=== PATIENT | male | born 1970 | race American Indian/Alaskan Native ===

== ENCOUNTER 2016-09-06 23:09 | Emergency (ER) | payer SELFPAY ==
[2016-09-06 23:27] VITALS: BP 160/76; PULSE 94; RESP 16; TEMP 98; O2SAT 97
--- NOTE | 2016-09-07 00:20 | ED PDOC ---
HPI: Psych/Substance Abuse Time Seen by Provider: 09/06/16 23:17 Chief Complaint (Nursing): Alcohol Ingestion Chief Complaint (Provider): ETOH - Denies complaint History Per: Patient History/Exam Limitations: no limitations Onset/Duration Of Symptoms: Days Current Symptoms Are (Timing): Still Present Modifying Factor(s): Alcohol Additional Complaint(s): Clear speech and steady gait on arrival. Pt states he drank a little earlier today and just wants to go home. Past Medical History Reviewed: Historical Data, Nursing Documentation, Vital Signs Vital Signs: Last Vital Signs Temp 98.0 F 09/06/16 23:22 Pulse 94 H 09/06/16 23:22 Resp 16 09/06/16 23:22 BP 160/76 H 09/06/16 23:22 Pulse Ox 97 09/06/16 23:22 - Medical History PMH: No Chronic Diseases, Gastritis - Surgical History Surgical History: No Surg Hx - Family History Family History: States: No Known Family Hx - Living Arrangements Living Arrangements: With Family - Social History Current smoker - smoking cessation education provided: No - Allergies Allergies/Adverse Reactions: Allergies Allergy/AdvReac Type Severity Reaction Status Date / Time Unobtainable Allergy Verified 09/06/16 23:27 Review of Systems ROS Statement: Except As Marked, All Systems Reviewed And Found Negative Neurological: Positive for: Other Physical Exam - Reviewed Nursing Documentation Reviewed: Yes Vital Signs Reviewed: Yes - Physical Exam Appears: Positive for: Well, Non-toxic, No Acute Distress Head Exam: Positive for: ATRAUMATIC, NORMAL INSPECTION, NORMOCEPHALIC Skin: Positive for: Normal Color, Warm, DRY Eye Exam: Positive for: Normal appearance ENT: Positive for: Normal ENT Inspection Neck: Positive for: Normal, Painless ROM Cardiovascular/Chest: Positive for: Regular Rate, Rhythm Respiratory: Positive for: CNT, Normal Breath Sounds Gastrointestinal/Abdominal: Positive for: Normal Exam, Bowel Sounds, Soft Back: Positive for: Normal Inspection Extremity: Positive for: Normal ROM Neurologic/Psych: Positive for: Alert, Oriented - ECG O2 Sat by Pulse Oximetry: 97 Medical Decision Making Medical Decision Making: AccuCheck normal Disposition - Clinical Impression Clinical Impression: Alcohol abuse Counseled Patient/Family Regarding: Diagnosis, Need For Followup - Disposition Referrals: [facility] [Outside] Disposition: Routine/Home Disposition Time: 00:20 Condition: GOOD
== END 2016-09-07 00:59 | disposition home or self-care (01) ==
LOC: MERGE 23:09 → H.ER 23:09
DX: F10.10 Alcohol abuse, uncomplicated (principal); Z71.6 Tobacco abuse counseling

== ENCOUNTER 2016-09-21 02:20 | Emergency (ER) | payer SELFPAY ==
[2016-09-21 02:20] VITALS: BMI 24.3
[2016-09-21] MEDS ORDERED: Silver Sulfadiazine 1% CREAM (50 gm) TOP STA (02:37)
[2016-09-21] MEDS ORDERED: Silver Sulfadiazine 1% CREAM (50 gm) ONE (02:41)
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
[2016-09-21 07:04] VITALS: BP 131/72; PULSE 80; RESP 16; TEMP 98; O2SAT 99
== END 2016-09-21 07:20 | disposition home or self-care (01) ==
LOC: H.ER 02:20
DX: T30.0 Burn of unspecified body region, unspecified degree (principal); E11.9 Type 2 diabetes mellitus without complications; F20.9 Schizophrenia, unspecified; F31.9 Bipolar disorder, unspecified; Z79.84 Long term (current) use of oral hypoglycemic drugs

== ENCOUNTER 2017-01-10 20:25 | Emergency (ER) | payer SELFPAY ==
[2017-01-10 20:26] VITALS: BMI 24.3
[2017-01-10 20:42] VITALS: BP 140/83; PULSE 74; RESP 20; TEMP 98; O2SAT 99
--- NOTE | 2017-01-10 20:58 | ED PDOC ---
HPI: General Adult Time Seen by Provider: 01/10/17 20:43 Chief Complaint (Nursing): Male Genitourinary History Per: Patient Additional Complaint(s): Pt. states for the past 5 days he's had R sided flank pain radiating to his R groin associated with dark urine but no hematuria or dysuria. Also reports he's been constipated for the past 4 days which is not unusual for him as his BMs are very irregular. States there are stretches where he has a BM daily and other days he has one every 3-4 days. Of note, pt. states he has had a gastric bypass surgery. Denies fever, abdominal pain, vomiting, nausea, trauma, chest pain, melena, hematochezia, SOB. Past Medical History Reviewed: Historical Data, Nursing Documentation, Vital Signs Vital Signs: Last Vital Signs Temp 98.0 F 01/10/17 20:39 Pulse 74 01/10/17 20:39 Resp 20 01/10/17 20:39 BP 140/83 01/10/17 20:39 Pulse Ox 99 01/10/17 20:59 - Medical History PMH: Back Problems, Bipolar Disorder (information from ems), Diabetes, Gastritis , Schizophrenia (information from ems) - Family History Family History: States: No Known Family Hx - Immunization History Hx Tetanus Toxoid Vaccination: No Hx Influenza Vaccination: No Hx Pneumococcal Vaccination: No - Home Medications Home Medications: Ambulatory Orders Medication Instructions Recorded Metformin HCl [Metformin] 01/30/14 Kaopectate 02/09/14 Percocet 10/325 mg Tab 02/09/14 Vitamin D 02/09/14 Cephalexin [cephalexin] 500 mg PO BID #14 cap 09/21/16 Ibuprofen [Motrin] 600 mg PO Q6 #20 tab 09/21/16 Silver Sulfadiazine 1% [Silver 1 cm2 TP BID #1 jar 09/21/16 Sulfadiazine] Polyethylene Glycol 3350 [Miralax] 17 gm PO DAILY PRN #30 each 01/10/17 - Allergies Allergies/Adverse Reactions: Allergies Allergy/AdvReac Type Severity Reaction Status Date / Time No Known Allergies Allergy Verified 09/21/16 02:23 Review of Systems ROS Statement: Except As Marked, All Systems Reviewed And Found Negative Gastrointestinal: Positive for: Constipation Musculoskeletal: Positive for: Back Pain Physical Exam - Reviewed Nursing Documentation Reviewed: Yes Vital Signs Reviewed: Yes - Physical Exam Appears: Positive for: Well, Non-toxic, No Acute Distress Head Exam: Positive for: ATRAUMATIC, NORMAL INSPECTION, NORMOCEPHALIC Skin: Positive for: Normal Color, Warm. Negative for: Rash Eye Exam: Positive for: EOMI, Normal appearance, PERRL ENT: Positive for: Normal ENT Inspection Neck: Positive for: Normal, Painless ROM Cardiovascular/Chest: Positive for: Regular Rate, Rhythm Respiratory: Positive for: CNT, Normal Breath Sounds Gastrointestinal/Abdominal: Positive for: Normal Exam, Bowel Sounds, Soft. Negative for: Tenderness Back: Positive for: Normal Inspection. Negative for: L CVA Tenderness, R CVA Tenderness Extremity: Positive for: Normal ROM Neurologic/Psych: Positive for: Alert, Oriented - Laboratory Results Result Diagrams: 01/10/17 21:32 01/10/17 21:32 - ECG O2 Sat by Pulse Oximetry: 99 - Radiology X-Ray: Interpreted by Me (Obstructive series) X-Ray Interpretation: Other (no obstruction) - Progress ED Course And Treament: Labs ordered. Obstructive series ordered. Re-evaluation Time: 22:24 (No distress. Abd remains soft and non-tender to deep palpation, no CVA tenderenss b/l.) Condition: Re-examined, Unchanged Disposition - Clinical Impression Clinical Impression: Constipation - Patient ED Disposition Is Patient to be Admitted: No - Disposition Referrals: [facility] [Outside] Disposition: Routine/Home Disposition Time: 22:27 Condition: STABLE Prescriptions: Polyethylene Glycol 3350 [Miralax] 17 gm PO DAILY PRN #30 each PRN Reason: Constipation Instructions: Constipation (ED) Forms: [employer] (Samoan)
[2017-01-10 21:50] LABS: BASO # 0.1 K/uL (0.0-0.2); EOS # 0.2 K/uL (0.0-0.7); EOS % 2.1 % (0.0-4.0); HEMATOCRIT 42.1 % (35.0-51.0); LYMPH # 2.7 K/uL (1.0-4.3); LYMPH % 30.6 % (20.0-40.0); MEAN CELL VOLUME 92.6 fl (80.0-94.0); MEAN CORPUSCULAR HEMOGLOBIN 30.8 pg (27.0-31.0); MEAN CORPUSCULAR HGB CONC 33.3 g/dL (33.0-37.0); MEAN PLATELET VOLUME 9.6 fl (7.2-11.7); MONO # 0.8 K/uL (0.0-0.8); MONO % 9.1 % (0.0-10.0); NEUT # 5.1 K/uL (1.8-7.0); NEUT % 57.2 % (50.0-75.0); RED CELL DISTRIBUTION WIDTH 12.9 % (11.5-14.5); WHITE BLOOD COUNT 8.9 K/uL (4.8-10.8)
[2017-01-10 22:00] LABS: ALB/GLOB RATIO 1.4 (1.0-2.1); ALKALINE PHOSPHATASE 66 U/L (38-126); ALT/SGPT 36 U/L (21-72); AST/SGOT 31 U/L (17-59); BILIRUBIN,TOTAL 0.6 mg/dl (0.2-1.3); BLOOD UREA NITROGEN 18 mg/dl (9-20); CALCIUM 9.4 mg/dL (8.4-10.2); CARBON DIOXIDE 27 mmol/L (22-30); CHLORIDE 101 mmol/L (98-107); GFR AFRICAN-AMERICAN > 60; GLUCOSE,RANDOM 94 mg/dL (75-110); POTASSIUM 3.7 MMOL/L (3.6-5.0); RBC URINE 2 /hpf (0-3); SODIUM 137 mmol/l (132-148); TOTAL PROTEIN 7.2 G/DL (6.3-8.2); URINE BILIRUBIN NEGATIVE (NEGATIVE); URINE BLOOD NEGATIVE (NEGATIVE); URINE COLOR YELLOW (YELLOW); URINE GLUCOSE (UA) NEG (Normal); URINE KETONE NEGATIVE (NEGATIVE); URINE LEUKOCYTE ESTERASE NEG Leu/uL (Negative); URINE PROTEIN NEGATIVE (NEGATIVE); URINE UROBILINOGEN 0.2-1.0 mg/dL (0.2-1.0); WBC URINE < 1 /hpf (0-5)
--- NOTE | 2017-01-11 10:55 | RAD ---
PROCEDURE: Radiographs of the chest and abdomen (obstructive series) HISTORY: constipation, hx of gastric bypass COMPARISON: No prior. TECHNIQUE: AP radiograph of the chest, with upright and supine radiographs of the abdomen. FINDINGS: CHEST: Lungs: Clear. Cardiovascular: Normal size heart. No pulmonary vascular congestion. Pleura: No pleural fluid. No pneumothorax. Other findings: None. ABDOMEN AND PELVIS: Bowel: Unremarkable bowel gas pattern. No evidence of mechanical obstruction. Moderate fecal retention is seen at the ascending colon and is mild at the descending colon and rectum. Free air: None. Bones: Unremarkable. Other findings: None. IMPRESSION: Unremarkable radiographs of chest and abdomen. No evidence of mechanical bowel obstruction.
== END 2017-01-10 23:00 | disposition home or self-care (01) ==
LOC: H.ER 20:25
DX: K59.00 Constipation, unspecified (principal); E11.9 Type 2 diabetes mellitus without complications; F20.9 Schizophrenia, unspecified; F31.9 Bipolar disorder, unspecified; Z79.84 Long term (current) use of oral hypoglycemic drugs